=== PATIENT | female | born 1990 | race Caucasian/White ===

== ENCOUNTER 2023-04-08 07:13 | Day surgery (SDC) | payer MEDICAID ==
[~2023-04-08] VITALS: Ht 142.2 cm; Wt 47.2 kg
[2023-04-08 07:56] LABS: HCG,QUAL RESULT NEGATIVE (NEGATIVE)
[2023-04-08] MEDS ORDERED: MEPERIDINE 100 MG INJ. 100 MG/ML VIAL ONE (08:54)
[2023-04-08] MEDS ORDERED: MIDAZOLAM HCL 5 MG/5 ML VIAL ONE ×2 (08:55→09:07)
[2023-04-08 13:45] VITALS: O2SAT 100
[2023-04-08 14:37] VITALS: BP_SYST 120; PULSE 64; RESP 17; TEMP 97.6
== END 2023-04-08 10:45 | disposition home or self-care (01) ==
LOC: SDS 07:13 → SMU 07:19 → SDS 10:45
PROVIDERS: ATTEND Internal Medicine Gastroenterology
DX: R10.10 Upper abdominal pain, unspecified (principal); K29.50 Unspecified chronic gastritis without bleeding; R19.4 Change in bowel habit; K44.9 Diaphragmatic hernia without obstruction or gangrene; Z85.028 Personal history of other malignant neoplasm of stomach; Z90.3 Acquired absence of stomach [part of]
CPT/HCPCS: 43239; 87081; 84703; 36415; 88305; 88312; 88313; 99152; G0378; J2250; J2175